=== PATIENT | female | born 1975 | race Caucasian/White ===

== ENCOUNTER 2022-11-14 18:13 | Emergency (ER) | payer BC ==
[~2022-11-14] VITALS: Ht 167.6 cm; Wt 81.6 kg
[2022-11-14 18:31] VITALS: BP 141/90; TEMP 98.6; O2SAT 100
== END 2022-11-14 19:08 | disposition left against medical advice (07) ==
LOC: ER 18:26
DX: R56.9 Unspecified convulsions (principal); Z53.21 Procedure and treatment not carried out due to patient leaving prior to being seen by health care provider